=== PATIENT | male | born 1955 | race Hispanic/Latino ===

== ENCOUNTER 2022-04-06 10:12 | Outpatient (CLI) | payer MEDICARE ==
[~2022-04-06 10:12] MED LIST: Gadobenate Dimeglumine 529 MG/1 ML (20ML VIAL) ONE
== END 2022-04-06 10:13 | disposition home or self-care (01) ==
LOC: CSHMRI 10:12
PROVIDERS: ATTEND Physician Assistant
DX: K86.89 Other specified diseases of pancreas (principal); K86.2 Cyst of pancreas
CPT/HCPCS: 74183; 82565; A9577

== ENCOUNTER 2025-09-11 10:50 | Outpatient (CLI) | payer OTHER | END 2025-09-11 10:51 | disposition home or self-care (01) | LOC: CSHULT 10:50 | PROVIDERS: ATTEND Physician Assistant | DX: Z13.6 Encounter for screening for cardiovascular disorders (principal) | CPT/HCPCS: 76775 ==